=== PATIENT | female | born 1960 | race Caucasian/White ===

== ENCOUNTER 2018-11-18 18:01 | Emergency (ER) | payer OTHER ==
[~2018-11-18] VITALS: Ht 154.9 cm; Wt 62.6 kg
[2018-11-18] MEDS ORDERED: Morphine Sulfate 4mg/ml Inj (IV USE ONLY) IVP ONE (19:00)
--- NOTE | 2018-11-18 19:00 | NUR ---
ED Nurse Note:pt. came with c/o abd pain nausea vomiting for 3 days, seen by ER MD, urine sent to labs
[2018-11-18 19:09] LABS: APPEARANCE,URINE CLEAR; BILIRUBIN, URINE NEGATIVE (NEGATIVE); COLOR,URINE PALE YELLOW; GLUCOSE, URINE (UA) NEGATIVE (NEGATIVE); KETONES,URINE NEGATIVE (NEGATIVE); LEUKOCYTE ESTERASE ,URINE 1+ (NEGATIVE); NITRITE,URINE NEGATIVE (NEGATIVE); PH,URINE 6 (4.5-8.0); PROTEIN,URINE NEGATIVE (NEGATIVE); UROBILINOGEN,URINE NORMAL MG/DL (0.0-1.0)
--- NOTE | 2018-11-18 19:12 | Emergency Room Report ---
History of Present Illness General Chief Complaint: Abdominal Pain Source: Patient Present Illness HPI Patient presents with right flank pain. for 3 days. assoc with dysuria, no nausea, but chills, no fever. constant sharp pain. Allergies: Coded Allergies: No Known Allergies (Unverified , 11/18/18) Patient History Past Medical History: none Past Surgical History: none Pertinent Family History: none Last Menstrual Period: menopause Nursing Documentation-PMH Past Medical History: No History, Except For Hx Cardiac Problems: No Hx Hypertension: No Hx Pacemaker: No Hx Asthma: No Hx COPD: No Hx Diabetes: No Hx Cancer: No Hx Gastrointestinal Problems: Yes - Enlarged liver, polyps in the gallbladder Hx Dialysis: No History Of Psychiatric Problem: No Hx Neurological Problems: No Hx Cerebrovascular Accident: No Hx Seizures: No Review of Systems All Other Systems: negative except mentioned in HPI Physical Exam Vital Signs Date Time Temp Pulse Resp B/P (MAP) Pulse Ox O2 Delivery O2 Flow Rate FiO2 11/18/18 18:20 98.2 76 16 176/106 98 Room Air General Appearance: well appearing, no apparent distress Head: normocephalic, atraumatic ENT: hearing grossly normal, normal voice Neck: full range of motion, supple Respiratory: no respiratory distress, speaking full sentences Gastrointestinal: non tender, soft, no mass Genitourinary: CVA tenderness (R) Musculoskeletal: no calf tenderness Neurologic: alert, normal gait Psychiatric: mood/affect normal Skin: no rash Medical Decision Making Diagnostic Impression: Primary Impression: Flank pain ER Course Patient presents significant complexity risk. Particularly very concerned about acute urolithiasis, infected kidney stone, pyelonephritis, sepsis, appendicitis, diverticulitis, ovarian torsion. The patient was given pain medication with significant improvement. CT was reviewed. Blood work was reviewed. Os was reviewed as well. The patient has no pain at this time. She time. Child patient is afebrile. And the patient's improvement, I feel the patient may be discharged home with very close follow-up with her primary care physician as an outpatient. Return if any change in symptoms or worsening symptoms. Laboratory Tests Test 11/18/18 18:47 11/18/18 19:00 11/18/18 20:37 Urine Color Pale yellow Pale yellow Urine Appearance Clear Clear Urine pH 6 (4.5-8.0) 7 (4.5-8.0) Urine Specific [place] 1.015 (1.005-1.035) 1.005 (1.005-1.035) Urine Protein Negative (NEGATIVE) Negative (NEGATIVE) Urine Glucose (UA) Negative (NEGATIVE) Negative (NEGATIVE) Urine Ketones Negative (NEGATIVE) Negative (NEGATIVE) Urine Blood Negative (NEGATIVE) Negative (NEGATIVE) Urine Nitrite Negative (NEGATIVE) Negative (NEGATIVE) Urine Bilirubin Negative (NEGATIVE) Negative (NEGATIVE) Urine Urobilinogen Normal MG/DL (0.0-1.0) Normal MG/DL (0.0-1.0) Urine Leukocyte Esterase 1+ (NEGATIVE) H 1+ (NEGATIVE) H Urine RBC 0-2 /HPF (0 - 2) Pending Urine WBC 2-4 /HPF (0 - 2) Pending Urine Squamous Epithelial Cells Few /LPF (NONE/OCC) Pending Urine Bacteria Few /HPF (NONE) Pending White Blood Count 8.3 K/UL (4.8-10.8) Red Blood Count 3.98 M/UL (4.20-5.40) L Hemoglobin 11.3 G/DL (12.0-16.0) L Hematocrit 34.0 % (37.0-47.0) L Mean Corpuscular Volume 86 FL (80-99) Mean Corpuscular Hemoglobin 28.3 PG (27.0-31.0) Mean Corpuscular Hemoglobin Concent 33.1 G/DL (32.0-36.0) Red Cell Distribution Width 12.2 % (11.6-14.8) Platelet Count 236 K/UL (150-450) Mean Platelet Volume 6.4 FL (6.5-10.1) L Neutrophils (%) (Auto) 63.4 % (45.0-75.0) Lymphocytes (%) (Auto) 29.1 % (20.0-45.0) Monocytes (%) (Auto) 5.5 % (1.0-10.0) Eosinophils (%) (Auto) 1.1 % (0.0-3.0) Basophils (%) (Auto) 0.9 % (0.0-2.0) Sodium Level 141 MMOL/L (136-145) Potassium Level 3.3 MMOL/L (3.5-5.1) L Chloride Level 103 MMOL/L (98-107) Carbon Dioxide Level 27 MMOL/L (21-32) Anion Gap 11 mmol/L (5-15) Blood Urea Nitrogen 16 mg/dL (7-18) Creatinine 0.7 MG/DL (0.55-1.30) Estimate Glomerular Filtration Rate > 60 mL/min (>60) Glucose Level 115 MG/DL (74-106) H Calcium Level 9.6 MG/DL (8.5-10.1) Total Bilirubin 0.4 MG/DL (0.2-1.0) Aspartate Amino Transferase (AST) 12 U/L (15-37) L Alanine Aminotransferase (ALT) 21 U/L (12-78) Alkaline Phosphatase 78 U/L (46-116) Total Protein 7.2 G/DL (6.4-8.2) Albumin 3.9 G/DL (3.4-5.0) Globulin 3.3 g/dL Albumin/Globulin Ratio 1.2 (1.0-2.7) Last Vital Signs Date Time Temp Pulse Resp B/P (MAP) Pulse Ox O2 Delivery O2 Flow Rate FiO2 11/18/18 18:58 76 16 Room Air 11/18/18 18:20 98.2 176/106 98 Status: improved Disposition: HOME, SELF-CARE Condition: Stable Scripts Ondansetron (Zofran) 4 Mg Tablet 4 MG ORAL Q6H PRN for Nausea & Vomiting, #10 TAB Prov: TYSON PECK 11/18/18 Hydrocodone Bit/Acetaminophen 5-325* (NORCO 5-325*) 1 Each Tablet 1 TAB ORAL Q6H PRN for For Pain, #10 TAB 0 Refills Prov: TYSON PECK 11/18/18 Ibuprofen* (MOTRIN*) 600 Mg Tablet 600 MG ORAL Q8H PRN for For Pain, #30 TAB 0 Refills Prov: TYSON PECK 11/18/18 Patient Instructions: Abdominal Pain, Adult TYSON PECK Nov 18, 2018 19:12
--- NOTE | 2018-11-18 19:30 | NUR ---
ED Nurse Note: Patient went down for CT.
[2018-11-18 19:34] LABS: BASOPHILS % (AUTO) 0.9 % (0.0-2.0); EOSINOPHILS % (AUTO) 1.1 % (0.0-3.0); HEMOGLOBIN 11.3 G/DL (12.0-16.0); LYMPHOCYTES % (AUTO) 29.1 % (20.0-45.0); MEAN CORPUSCULAR VOLUME 86 FL (80-99); MONOCYTES % (AUTO) 5.5 % (1.0-10.0); NEUTROPHILS % (AUTO) 63.4 % (45.0-75.0); PLATELET COUNT 236 K/UL (150-450); RED BLOOD COUNT 3.98 M/UL (4.20-5.40); RED CELL DISTRIBUTION WIDTH 12.2 % (11.6-14.8); WHITE BLOOD COUNT 8.3 K/UL (4.8-10.8)
[2018-11-18 19:38] LABS: ANION GAP 11 mmol/L (5-15); BLOOD UREA NITROGEN 16 mg/dL (7-18); CALCIUM 9.6 MG/DL (8.5-10.1); CARBON DIOXIDE 27 MMOL/L (21-32); CHLORIDE 103 MMOL/L (98-107); CREATININE 0.7 MG/DL (0.55-1.30); POTASSIUM 3.3 MMOL/L (3.5-5.1); SODIUM 141 MMOL/L (136-145)
--- NOTE | 2018-11-18 19:40 | NUR ---
ED Nurse Note: Patient returned from CT, IV NS fluids started and are running.
[2018-11-18 19:43] LABS: ALANINE AMINOTRANSFERASE 21 U/L (12-78); ALBUMIN 3.9 G/DL (3.4-5.0); ALBUMIN/GLOBULIN RATIO 1.2 (1.0-2.7); ALKALINE PHOSPHATASE 78 U/L (46-116); ASPARTATE AMINO TRANSFERASE 12 U/L (15-37); BILIRUBIN,TOTAL 0.4 MG/DL (0.2-1.0)
[2018-11-18 19:53] VITALS: BP 158/90
--- NOTE | 2018-11-18 19:59 | Diagnostic Imaging Report ---
EXAM: CT Abdomen and Pelvis Without Intravenous Contrast CLINICAL HISTORY: ABD PAIN TECHNIQUE: Axial computed tomography images of the abdomen and pelvis without intravenous contrast. CTDI is 0.15, 12.77 mGy and DLP is 605 mGy-cm. One or more of the following dose reduction techniques were used: automated exposure control, adjustment of the mA and/or kV according to patient size, use of iterative reconstruction technique. Coronal and sagittal reformatted images were created and reviewed. COMPARISON: No relevant prior studies available. FINDINGS: Lung bases: The lung bases are unremarkable. ABDOMEN: Liver: Small nonspecific 5 mm low-density lesion in the posterior segment of the right lobe of the liver which is too small to adequately characterize. Gallbladder and bile ducts: The gallbladder is grossly unremarkable for a noncontrast CT. No calcified stones. No ductal dilation. Pancreas: The pancreas is grossly unremarkable for noncontrast CT. No ductal dilation. Spleen: The spleen is grossly unremarkable for a noncontrast CT. Adrenals: The adrenals are grossly unremarkable for a noncontrast CT. Kidneys and ureters: 1.3 cm stone in the lower pole of the left kidney. No evidence for hydronephrosis or ureteral stone. Stomach and bowel: Diverticulosis without evidence for diverticulitis. Evaluation of the descending and rectosigmoid colon is limited secondary to poor distention. No definite evidence for bowel related inflammatory changes. No evidence for significant bowel loop dilation to suggest an obstructive process. PELVIS: Appendix: The appendix is normal. Bladder: The bladder is grossly unremarkable. No stones. Reproductive: The uterus is grossly unremarkable. ABDOMEN and PELVIS: Intraperitoneal space: No free intraperitoneal fluid or free intraperitoneal gas. Bones/joints: Mild degenerative changes of the thoracolumbar spine. No acute fracture. No dislocation. Soft tissues: Small umbilical hernia containing fat only. Vasculature: Unremarkable. No abdominal aortic aneurysm. Lymph nodes: Small nonspecific mesenteric lymph nodes. IMPRESSION: 1. 1.3 cm stone in the lower pole of the left kidney. No evidence for hydronephrosis or ureteral stone. 2. Diverticulosis without evidence for diverticulitis.
--- NOTE | 2018-11-18 20:34 | NUR ---
ED Nurse Note: Patient ambulated to the restroom with steady gait. Repeat urine lab in progress of collection.
[2018-11-18] MEDS ORDERED: Ketorolac 30mg Inj IV ONE (20:45)
[2018-11-18 20:47] LABS: APPEARANCE,URINE CLEAR; BILIRUBIN, URINE NEGATIVE (NEGATIVE); COLOR,URINE PALE YELLOW; GLUCOSE, URINE (UA) NEGATIVE (NEGATIVE); KETONES,URINE NEGATIVE (NEGATIVE); LEUKOCYTE ESTERASE ,URINE 1+ (NEGATIVE); NITRITE,URINE NEGATIVE (NEGATIVE); PH,URINE 7 (4.5-8.0); PROTEIN,URINE NEGATIVE (NEGATIVE); UROBILINOGEN,URINE NORMAL MG/DL (0.0-1.0)
[2018-11-18] MEDS ORDERED: NORCO 5-325 TA1 EACH ORAL (21:04)
[2018-11-18] MEDS ORDERED: IBUPROFEN600 MG ORAL (21:04)
[2018-11-18] MEDS ORDERED: ZOFRAN4 M1 ORAL (21:04)
--- NOTE | 2018-11-18 21:13 | NUR ---
ED Nurse Note: Patient cleared for discharge, ambulatory with steady gait, no complaints of pain, verbalized understanding of discharge instructions. ID band removed, IV removed, patient departed with all belongings.
[2018-11-18 21:14] VITALS: BP 158/90
== END 2018-11-18 21:15 | disposition home or self-care (01) ==
LOC: EMR 19:19
DX: R10.9 Unspecified abdominal pain (principal); N20.0 Calculus of kidney; K57.90 Diverticulosis of intestine, part unspecified, without perforation or abscess without bleeding
CPT/HCPCS: 36415; 74176; 80053; 81001; 81003; 85025; 96361; 96374; 96375; 99284; J1885; J2270; J2405